=== PATIENT | male | born 1995 | race Caucasian/White ===

== ENCOUNTER 2024-12-28 11:24 | Emergency (ER) | payer BC ==
[~2024-12-28] VITALS: Ht 175.3 cm; Wt 73.0 kg
[2024-12-28 11:35] VITALS: O2SAT 99
[2024-12-28] MEDS ORDERED: CEPH500C2 MT (14:23)
[2024-12-28] MEDS ORDERED: SULF1TAB48 MT (14:24)
[2024-12-28] MEDS: LIDOCAINE HCL/PF 1% 10 MG/ML 5ML VIAL INFIL ONE (14:37)
[2024-12-28] MEDS: BACITRACIN ZINC OINT UDPKT TOP ONE (14:37)
[2024-12-28 14:45] VITALS: BP 128/66; PULSE 96; RESP 14; TEMP 36.9; O2SAT 99
== END 2024-12-28 14:48 | disposition home or self-care (01) ==
LOC: ER 11:24
DX: L02.412 Cutaneous abscess of left axilla (principal)
CPT/HCPCS: 10060; 99283; J2003; Z7610

== ENCOUNTER 2025-02-10 03:43 | Emergency (ER) | payer BC ==
[~2025-02-10] VITALS: Ht 175.3 cm; Wt 85.5 kg
[~2025-02-10 03:43] MED LIST: CEPH500C2 MT; SULF1TAB48 MT
[2025-02-10 03:54] VITALS: O2SAT 100
[2025-02-10 04:04] VITALS: BP 123/74; PULSE 75; RESP 18; TEMP 36.8
[2025-02-11] MEDS ORDERED: CEPH250T MT (19:25)
== END 2025-02-10 06:08 | disposition home or self-care (01) ==
LOC: ER 03:43
DX: L02.412 Cutaneous abscess of left axilla (principal); Z79.899 Other long term (current) drug therapy
CPT/HCPCS: 99281

== ENCOUNTER 2025-02-11 15:55 | Emergency (ER) | payer BC ==
[~2025-02-11] VITALS: Ht 175.3 cm; Wt 82.0 kg
[2025-02-11 16:07] VITALS: O2SAT 99
[2025-02-11 16:31] VITALS: BP 127/49; PULSE 60; RESP 18; TEMP 36.7; O2SAT 100
[2025-02-11] MEDS: BACITRACIN ZINC OINT UDPKT TOP ONE (19:03)
[2025-02-11] MEDS: LIDOCAINE HCL/PF 1% 10 MG/ML 5ML VIAL INFIL ONE (19:03)
[2025-02-11] MEDS ORDERED: CEPH250T MT (19:25)
== END 2025-02-11 19:38 | disposition home or self-care (01) ==
LOC: ER 15:55
DX: L02.412 Cutaneous abscess of left axilla (principal); Z79.899 Other long term (current) drug therapy
CPT/HCPCS: 99283; J2003; Z7610 ×2